=== PATIENT | male | born 1965 | race Caucasian/White ===

== ENCOUNTER → 2020-11-04 08:09 | Outpatient (BNVA) | payer BC, SELFPAY | PROVIDERS: PCP Nurse Practitioner Family; Visit Provider Nurse Practitioner Family | DX: E11.9 Type 2 diabetes mellitus without complications (principal); E78.2 Mixed hyperlipidemia; E55.9 Vitamin D deficiency, unspecified; Z79.899 Other long term (current) drug therapy | CPT/HCPCS: 80053; 80061; 81003; 82306; 83036; 84443; 85025 ==

== ENCOUNTER → 2021-04-21 12:26 | Outpatient (BNVA) | payer BC, SELFPAY | PROVIDERS: PCP Nurse Practitioner Family; Visit Provider Nurse Practitioner Family | DX: E55.9 Vitamin D deficiency, unspecified (principal); E11.9 Type 2 diabetes mellitus without complications | CPT/HCPCS: 80053; 82306; 83036 ==

== ENCOUNTER → 2022-03-10 08:48 | Outpatient (BNVA) | payer BC, SELFPAY | PROVIDERS: PCP Nurse Practitioner; Visit Provider Nurse Practitioner | DX: Z79.899 Other long term (current) drug therapy (principal); E11.9 Type 2 diabetes mellitus without complications; E78.2 Mixed hyperlipidemia | CPT/HCPCS: 80053; 80061; 83036; 85025 ==

== ENCOUNTER → 2022-10-05 09:42 | Outpatient (BNVA) | payer BC, SELFPAY | PROVIDERS: PCP Nurse Practitioner; Visit Provider Nurse Practitioner | DX: E11.9 Type 2 diabetes mellitus without complications (principal); E78.2 Mixed hyperlipidemia | CPT/HCPCS: 80053; 83036 ==

== ENCOUNTER → 2023-02-10 08:51 | Outpatient (BNVA) | payer OTHER, SELFPAY | PROVIDERS: PCP Nurse Practitioner; Visit Provider Nurse Practitioner Family | DX: E55.9 Vitamin D deficiency, unspecified (principal); Z79.899 Other long term (current) drug therapy; E11.9 Type 2 diabetes mellitus without complications; E78.2 Mixed hyperlipidemia | CPT/HCPCS: 80053; 80061; 81003; 82306; 83036; 84443; 85025; G0103 ==

== ENCOUNTER 2023-05-20 06:21 | Day surgery (SDC) | payer OTHER, SELFPAY ==
[2023-05-20 06:36] VITALS: BP 141/97; PULSE 86; RESP 18; TEMP 36.5; O2SAT 95; BMI 33.3
--- NOTE | 2023-05-20 06:40 | W.PM.OPSFHP ---
Same Day Surgery H&P Indication for Procedure/HPI DATE OF PROCEDURE: May 20, 2023 CHIEF COMPLAINT/INDICATIONFOR SURGICAL PROCEDURE: encounter for screening colonoscopy PREOP DIAGNOSIS: encounter for screening colonoscopy PLANNED PROCEDURE: Operation Date: 05/20/23 07:55 Proposed Procedures p [id number] colon G0121 screen colon A risk Z12.11(Not Applicable) - Andrés Giron MD Medications/Allergies* Home Medications Medication Instructions Recorded Confirmed Type lancets 30 gauge #100 ea 09/13/20 05/18/23 History Allergies/Adverse Reactions Allergy/AdvReac Type Severity Reaction Status Date / Time Penicillins Allergy Intermediate hives Verified 03/11/23 14:43 Pertinent History/Comorbid Conditions* Medical History (Updated 02/16/23 @ 10:30 by CORAL Valadez) History of colon polyps Vitamin D deficiency Medication management Diabetes mellitus Mixed hyperlipidemia Family History (Updated 03/11/23 @ 15:04 by CIRO Nicole) Cancer Mother uterin cancer Social History Smoking and tobacco/nicotine status: former use of tobacco/nicotine Second hand smoke exposure: No Alcohol intake: former Substance/Drug Use: never Lives independently: Yes Housing: House Current occupational status: employed Current occupation: IT Pertinent Exam Findings alert, oriented x 3 and clear to auscultation bilaterally Recommendations Surgery/Procedure today Coding Level of Care Code Acute Code for Chg Fwd
[2023-05-20] MEDS: sodium chloride 0.9% 1,000 ML 30 ML IV ×2 (06:51→08:08)
--- NOTE | 2023-05-20 06:52 | ANES.PREANE2 ---
Pre-Anesthetic Assessment Height/Weight: Height 1.65 m Weight 90.718 kg Temp Pulse Resp BP Pulse Ox O2 Del Method 97.7 F 86 18 141/97 95 Room Air 05/20/23 06:36 05/20/23 06:36 05/20/23 06:36 05/20/23 06:36 05/20/23 06:36 05/20/23 06:36 Preop Diagnosis: encounter for screening colonoscopy Operation Date: 05/20/23 07:55 [place] Procedures [place] [id number] colon G0121 screen colon A risk Z12.11(Not Applicable) - Andrés Giron MD Familial anesthetic complications: None Was Beta Too taken within 24 hours: N/A Was Clonidine taken within 24 hours: N/A Last intake: Intake Last Liquid Date 05/19/23 Last Liquid Time 20:00 Last Solid Date 05/18/23 Last Solid Time 18:00 Social No alcohol and No tobacco Exam alert, oriented x 3, clear to auscultation bilaterally and regular rate & rhythm Airway Mallampati: Class III Dentition: caps Metabolic Diabetes Mellitus and Hyperlipidemia Anesthetic Plan ASA status: 3 Anesthesia: MAC Risk of > 500 ml blood loss (7ml/kg in children): No Medications/Allergies Home Medications Medication Instructions Recorded Confirmed Last Taken Type lancets 30 gauge #100 ea 09/13/20 05/18/23 Unknown History metformin 500 mg tablet 1,000 mg (2 x 500 mg) PO BID 90 02/10/23 05/20/23 05/19/23 Rx days #360 tabs rosuvastatin 5 mg tablet 5 mg PO DAILY 90 days #90 tabs 02/10/23 05/20/23 05/19/23 Rx Allergies Allergy/AdvReac Type Severity Reaction Status Date / Time Penicillins Allergy Intermediate hives Verified 03/11/23 14:43 Current Medications Generic Name Dose Route Start Last Admin Trade Name Freq PRN Reason Stop Dose Admin Sodium Chloride 1,000 mls @ 30 mls/hr 05/20/23 06:30 05/20/23 06:51 Sodium Chloride 0.9% IV 30 mls/hr .Q24H PASTORA Administration PFSH Anesthesia Medical History History of colon polyps Vitamin D deficiency Medication management Diabetes mellitus Mixed hyperlipidemia Family History (Updated 01/18/24 @ 15:04 by CIRO Nicole) Mother Cancer uterin cancer Social History Smoking and tobacco/nicotine status: former use of tobacco/nicotine Second hand smoke exposure: No Alcohol intake: former Substance/Drug Use: never Lives independently: Yes Housing: House Current occupational status: employed Current occupation: IT Data Anesthesia Cardiac Studies: No Data to Display
[2023-05-20 06:55] LABS: Glucose Point of Care 155 mg/dL (70-110)
[2023-05-20 08:28] VITALS: BP 124/78; PULSE 67; RESP 12; TEMP 36.3; O2SAT 97
[2023-05-20 08:34] VITALS: BP 136/84; PULSE 77; RESP 16; O2SAT 99
--- NOTE | 2023-05-20 09:00 | ANE.PACU2 ---
Inpatient post-anesthesia follow up: Airway intact: Yes Vital signs: Temperature 97.3 F Pulse Rate 77 Respiratory Rate 16 Blood Pressure 136/84 Pulse Oximetry 99 Oxygen Delivery Me thod Room Air Oxygen Flow Rate Fraction of Inspir ed Oxygen Hydration adequate: Yes Nausea and vomiting: No Pain level: 1 Mental status: Baseline
== END 2023-05-20 09:00 | disposition home or self-care (01) ==
PROVIDERS: PCP Nurse Practitioner Family; Visit Provider Surgery
PROC: 0DJD8ZZ Inspection of Lower Intestinal Tract, Via Natural or Artificial Opening Endoscopic (ICD-10-PCS; CPT 45378; principal; 2023-05-20 07:55)
DX: Z12.11 Encounter for screening for malignant neoplasm of colon (principal); Z86.010 Personal history of colon polyps; K63.5 Polyp of colon; D12.8 Benign neoplasm of rectum; E11.9 Type 2 diabetes mellitus without complications; E78.2 Mixed hyperlipidemia; Z87.891 Personal history of nicotine dependence
CPT/HCPCS: 36416; 45380; 82962; 88305; J2704; J7030

== ENCOUNTER → 2023-09-27 08:06 | Outpatient (BNVA) | payer OTHER, SELFPAY | PROVIDERS: PCP Nurse Practitioner Family; Visit Provider Nurse Practitioner Family | DX: E11.9 Type 2 diabetes mellitus without complications (principal); E55.9 Vitamin D deficiency, unspecified; Z79.899 Other long term (current) drug therapy; E78.2 Mixed hyperlipidemia | CPT/HCPCS: 80053; 80061; 81003; 82306; 83036; 85025 ==

== ENCOUNTER → 2024-05-25 14:38 | Outpatient (BNVA) | payer OTHER, SELFPAY | PROVIDERS: PCP Nurse Practitioner Family; Visit Provider Nurse Practitioner Family | DX: E78.2 Mixed hyperlipidemia (principal); E11.9 Type 2 diabetes mellitus without complications; E55.9 Vitamin D deficiency, unspecified; Z79.899 Other long term (current) drug therapy | CPT/HCPCS: 80053; 80061; 81003; 82306; 83036; 84443; 85025; G0103 ==

== ENCOUNTER 2024-05-26 08:45 | Outpatient (CLI) | payer OTHER, SELFPAY ==
--- NOTE | 2024-05-26 08:48 | XR_ITS ---
WS: [id number] XR lumbar spine 6V w f/e [id number] REASON FOR EXAM: M54.9 - Dorsalgia, unspecified FINDINGS: Mild rotatory levoscoliosis. Normal lordosis. No significant vertebral body compression or focal lesion. Significant vertebral body osteophytosis at L2-L3 and L4-L5. There is moderate narrowing of the disc space at L4-L5 and L5-S1. No spondylolysis. No significant neutral listhesis. No significant vertebral body movement with flexion or extension. Moderate degenerative arthropathy in the facet joints L4-S1. XR/XR lumbar spine 6V w f/e [id number] IMPRESSION: Degenerative spondylosis as above.
--- NOTE | 2024-05-26 08:48 | XR_ITS ---
WS: [id number] XR KUB [id number] REASON FOR EXAM: N20.0 - Calculus of kidney FINDINGS: No free air or retroperitoneal air. Unremarkable bowel gas pattern. No organomegaly or mass identified. No urinary tract calculi. Moderate degenerative spondylosis of the lumbar spine and mild to moderate osteoarthritis of the hips. XR/XR KUB [id number] IMPRESSION: No acute abnormality. No urinary tract calculi.
== END 2024-05-26 08:46 | disposition home or self-care (01) ==
PROVIDERS: PCP Nurse Practitioner Family; Visit Provider Nurse Practitioner Family
DX: N20.0 Calculus of kidney (principal); M47.897 Other spondylosis, lumbosacral region; G89.29 Other chronic pain; M41.86 Other forms of scoliosis, lumbar region; M51.369 Other intervertebral disc degeneration, lumbar region without mention of lumbar back pain or lower extremity pain; M51.379 Other intervertebral disc degeneration, lumbosacral region without mention of lumbar back pain or lower extremity pain; M25.78 Osteophyte, vertebrae; M16.0 Bilateral primary osteoarthritis of hip
CPT/HCPCS: 72114; 74018

== ENCOUNTER 2024-07-31 15:17 | Outpatient (CLI) | payer OTHER, SELFPAY ==
--- NOTE | 2024-07-31 16:00 | MR_ITS ---
WS: [id number] MRI LUMBAR SPINE NONCONTRAST TECHNIQUE: Sagittal T1, T2 and STIR imaging. Axial T1 and T2 imaging. CLINICAL INFORMATION: M54.16 - Radiculopathy, lumbar region COMPARISON: None. FINDINGS: Mild lumbar curve. No acute compression. RIGHT paracentral disc protrusion L4-5. L1-L2: Normal. L2-L3: Normal. L3-L4: Mild annular bulging. Mild facet arthropathy. Spinal canal and foramen are patent. L4-L5: RIGHT paracentral disc protrusion impinges the subarticular recess and traversing RIGHT L5 nerve root. Mild to moderate central canal stenosis. Moderate RIGHT and mild LEFT foraminal narrowing. Moderate facet arthropathy. L5-S1: Mild annular bulging. Moderate facet arthropathy. Mild LEFT foraminal narrowing. Visualized pelvic bony structures: Normal. Paravertebral soft tissues: Normal. MR/MR lumbar spine wo con* [id number] IMPRESSION: 1. Prominent RIGHT paracentral protrusion L4-5 impinges the traversing RIGHT L 5 nerve root in the subarticular recess. Moderate central canal stenosis. Moder ate RIGHT and mild LEFT foraminal narrowing at this level. 2. Mild LEFT L5-S1 foraminal narrowing. 3. Moderate to advanced facet arthropathy L4-L5 and L5-S1.
== END 2024-07-31 15:18 | disposition home or self-care (01) ==
PROVIDERS: PCP Nurse Practitioner Family; Visit Provider Anesthesiology Pain Medicine
DX: M54.16 Radiculopathy, lumbar region (principal); M51.26 Other intervertebral disc displacement, lumbar region; M48.061 Spinal stenosis, lumbar region without neurogenic claudication; M48.07 Spinal stenosis, lumbosacral region; M47.896 Other spondylosis, lumbar region; M47.897 Other spondylosis, lumbosacral region; M43.8X6 Other specified deforming dorsopathies, lumbar region; M51.369 Other intervertebral disc degeneration, lumbar region without mention of lumbar back pain or lower extremity pain; M51.379 Other intervertebral disc degeneration, lumbosacral region without mention of lumbar back pain or lower extremity pain
CPT/HCPCS: 72148

== ENCOUNTER → 2024-11-15 14:32 | Outpatient (BNVA) | payer OTHER, SELFPAY | PROVIDERS: PCP Nurse Practitioner Family; Visit Provider Nurse Practitioner Family | DX: E11.9 Type 2 diabetes mellitus without complications (principal); E78.2 Mixed hyperlipidemia; Z79.899 Other long term (current) drug therapy | CPT/HCPCS: 80053; 80061; 81003; 83036; 85025 ==